=== PATIENT | male | born 1980 | race Caucasian/White ===

== ENCOUNTER → 2017-07-05 | Outpatient (CLI) | payer OTHER ==
--- NOTE | ~2017-07-05 | MR17 ---
[facility] A Service of [facility] RADIOLOGY TEXT RESULTS PATIENT: RICHIE RENEE LOCATION: [facility] : 79 UNIT #: [id number] AGE: [address]: CRALA BLACK APRN SEX: M ORDER DR: [id number] [facility] [address] [place], [place] [address] [id number] O MR#: [id number] Acc #: [id number] NAME: RICHIE RENEE : 1980 SEX: M STUDY DATE/TIME: 07/05/2017 7:16 UNIT: [facility] ROOM: STUDY DESCRIPTION: MR Brain WWo Contrast Attending Physician: Carla Black Aprn Referring Physician: Carla Black Aprn Ordering Physician: Iker Schmidt II., M.D. Primary Care Physician: Shamir Armenta M.D. MRI CENTER REPORT This report is preliminary unless electronic signature is present. EXAM Brain MRI with and without contrast, 07/05/2017 PROCEDURE Routine brain MR with and without contrast. COMPARISON Prior MRI from the [facility] dated 07/04/2016. HISTORY 1-year history of multiple sclerosis with new symptoms of bilateral thigh itching and left hand/fingers paresthesias or dysesthesia. FINDINGS There is no MR evidence of acute ischemia or other acute restricted diffusion. There is no MR evidence of intracranial hemorrhage or hydrocephalus or extraaxial fluid collection. Bone marrow signal is normal and the brain is structurally normal. Normal flow voids are seen in the cerebral vessels. There are moderately extensive white matter changes, and while they are nonspecific, they are very typical of multiple sclerosis. At least 1 lesion which is clearly new since the prior study is seen in the left parietal subcortical white matter. Allowing for differences in scan angulation and orientation, no other definitely new lesions are seen. While there is a small venous angioma in the upper jose unchanged since the prior study, postcontrast images show no convincing evidence of any enhancing lesion, and there is no abnormal enhancement in the new left parietal lesion. IMPRESSION 1. Advanced changes typical of multiple sclerosis with extensive [facility] A Service of [facility] RADIOLOGY TEXT RESULTS PATIENT: RICHIE RENEE LOCATION: [facility] : 79 UNIT #: [id number] AGE: [address]: CARLA BLACK APRN SEX: M ORDER DR: periventricular and subcortical white matter changes and lesser infratentorial changes, generally stable since the prior study. No convincing areas of restricted diffusion or abnormal pathologic enhancement are seen. 2. There is a lesion in the left parietal subcortical white matter which is clearly new since the prior study, about 10.0 mm in size, but does not enhance with contrast or demonstrate restricted diffusion. 3. There is otherwise no acute abnormality or interval change since the prior MRI with the exception of a small left parotid lesion which may have increased slightly in size in the interval, currently measuring about 8.0 mm x 8.0 mm and previously probably measuring about 5.0 x 9.0 mm. It has grown slightly in the interval, recommend ENT followup. Dictated by... Brad Trevino M.D. THIS IS AN ELECTRONICALLY VERIFIED REPORT Brad Trevino M.D. at 07/08/2017 4:07 PM Hermann TD: 07/06/2017 11:35 JOB #: [id number] MRI CENTER REPORT Page 1 of 1 COPY
--- NOTE | ~2017-07-05 | MR31 ---
[facility] A Service of [facility] RADIOLOGY TEXT RESULTS PATIENT: RICHIE RENEE LOCATION: [facility] : 79 UNIT #: [id number] AGE: [address]: CARLA BLACK APRN SEX: M ORDER DR: [id number] [facility] [address] [place], [place] [address] [id number] O MR#: [id number] Acc #: [id number] NAME: RICHIE RENEE : 1980 SEX: M STUDY DATE/TIME: 07/05/2017 6:38 UNIT: [facility] ROOM: STUDY DESCRIPTION: MR Cervical WWo Contrast Attending Physician: Carla Black Aprn Referring Physician: Carla Black Aprn Ordering Physician: Iker Schmidt II., M.D. Primary Care Physician: Shamir Armenta M.D. MRI CENTER REPORT This report is preliminary unless electronic signature is present. EXAM Cervical spine MRI with and without contrast, 07/05/2017 COMPARISON Cervical spine MRI from the [facility] dated 07/13/2016. CLINICAL HISTORY One year history of known multiple sclerosis with a 1-month history of bilateral thigh pruritus and dysesthesias in fingers on the left hand. FINDINGS Spine alignment is normal and bone marrow signal is normal and cord signal is normal. Postcontrast images show no abnormal enhancement in the cord or spinal column or spinal canal. At C2-3, the canal and foramina are normal. At C3-4, the canal and right foramen are normal and there is minimal left foraminal narrowing unchanged since the prior study. At C4-5, the canal and foramina are normal. At C5-6, on the prior study there was a left side disc and osteophyte complex and now there is a superimposed disc protrusion with moderate left side cord compression. There is no abnormal cord signal. The right foramen is normal and the left foramen is minimally narrowed. At C6-7 and C7-T1, the canal and foramina are normal. IMPRESSION 1. New left paracentral disc protrusion extending slightly downward at C5-6 with [id number] left side cord compression without abnormal cord signal. This is substantially increased since the [facility] A Service of [facility] RADIOLOGY TEXT RESULTS PATIENT: RICHIE RENEE [facility] UNIT #: [id number] AGE: [address]: CARLA BLACK APRN SEX: M ORDER DR: prior study. 2. There is no abnormal cord signal at this or any other level and there is no abnormal enhancement in the cord. No substantial canal or foraminal stenosis is seen at any level. Dictated by... Brad Trevino M.D. THIS IS AN ELECTRONICALLY VERIFIED REPORT Brad Trevino M.D. at 07/08/2017 4:07 PM Hermann TD: 07/06/2017 09:35 JOB #: [id number] MRI CENTER REPORT Page 1 of 1 COPY
== END | disposition home or self-care (01) ==
LOC: CMRI 06:03 → EDBD 06:03 → CMRI 07:00
DX: G43.909 Migraine, unspecified, not intractable, without status migrainosus (principal); M50.022 Cervical disc disorder at C5-C6 level with myelopathy; R90.82 White matter disease, unspecified; K11.9 Disease of salivary gland, unspecified
CPT/HCPCS: 70553; 72156; A9577